=== PATIENT | male | born 1990 | race Caucasian/White ===

== ENCOUNTER 2024-03-23 12:32 | Emergency (ER) | payer OTHER, SELFPAY ==
[2024-03-23] VITALS (8 sets, daily range): BP systolic 114–136; BP diastolic 77–92; PULSE 87–119; TEMP 36.6; O2SAT 95–100; BMI 21.9
--- NOTE | 2024-03-23 12:49 | ECG_ITS ---
[facility] Test Date: 2024-03-23 Pat Name: YOLY LATHAM Department: Room: - Gender: Male Laboratory Director: : 1990 Requested By: Order Number: [id number] Reading MD: CYNDI GIFFORD Measurements Intervals [place] Rate: 114 P: 53 MD: 148 QRS: 57 QRSD: 80 T: 54 QT: 316 QTc: 383 Interpretive Statements 1120 Sinus tachycardia 9140 abnormal rhythm ECG No previous ECG available for comparison Electronically Signed On 03-23-2024 18:14:42 EST by CYNDI GIFFORD
[2024-03-23 13:17] LABS: Basophils Percent Auto 0.5 % (0.2-2.0); Eosinophils Absolute Auto 0.2 10^3/uL (0.0-0.7); Eosinophils Percent Auto 2.8 % (0.9-7.0); Hematocrit 42.3 % (42.0-54.0); Hemoglobin 14.3 g/dL (14.0-18.0); Immature Granulocytes Abs Auto 0.01 10^3/uL (0.00-0.03); Immature Granulocytes Pct Auto 0.2 % (0.0-0.5); Lymphocytes Absolute Auto 1.6 10^3/uL (1.2-3.8); Lymphocytes Percent Auto 24.8 % (20.5-60.0); Mean Corpuscular HGB Conc 33.8 g/dL (29.9-35.2); Mean Corpuscular Hemoglobin 30.8 pg (25.9-34.0); Mean Corpuscular Volume 91.2 fL (80.0-94.0); Mean Platelet Volume 8.7 fL (9.5-13.5); Monocytes Absolute Auto 0.5 10^3/uL (0.3-0.8); Monocytes Percent Auto 8.1 % (1.7-12.0); Neutrophils Absolute Auto 4.2 10^3/uL (1.4-6.5); Neutrophils Percent Auto 63.6 % (43.0-75.0); Platelet Count 341 10^3/uL (150-450); Red Blood Count 4.64 10^6/uL (4.70-6.10); Red Cell Distribution Width 11.9 % (11.0-15.0); White Blood Count 6.5 10^3/uL (4.0-11.0)
[2024-03-23 13:30] LABS: Alanine Aminotransferase 37 U/L (16-63); Albumin Globulin Ratio 1.1; Albumin Level 3.9 g/dL (3.4-5.0); Alkaline Phosphatase 70 U/L (46-116); Anion Gap 13.2; Aspartate Amino Transferase 24 U/L (15-37); BUN Creatinine Ratio 16.8; Bilirubin Total 0.3 mg/dL (0.2-1.0); Calcium 8.7 mg/dL (8.5-10.1); Carbon Dioxide 29.4 mmol/L (21.0-32.0); Chloride 102 mmol/L (98-107); Estimated GFR (African America >60 (>=60 mL/min/1.73m^2); Estimated GFR (Non-African Ame >60 (>=60 mL/min/1.73m^2); Globulin 3.4 g/dL; Glucose 92 mg/dL (74-106); Potassium 3.6 mmol/L (3.5-5.1); Sodium 141 mmol/L (136-145); Total Protein 7.3 g/dL (6.4-8.2)
[2024-03-23 13:37] LABS: INR 1.01; Prothrombin Time 10.7 sec (9.0-11.6)
[2024-03-23 13:38] LABS: D Dimer <0.19 mg/L FEU (<=0.59)
[2024-03-23 13:39] LABS: Magnesium 1.7 mg/dL (1.8-2.4); Thyroid Stimulating Hormone 2.707 uIU/mL (0.358-3.740); Troponin I High Sensitivity 13.8 pg/mL (4.0-76.1)
--- NOTE | 2024-03-23 13:45 | ED.GENADUL1 ---
HPI HPI - General Adult General Chief complaint: Chest Pain Stated complaint: palpitations Time Seen by Provider: 03/23/24 12:49 Source: patient Mode of arrival: walk-in Limitations: no limitations History of Present Illness HPI narrative: The patient coming to the ER with a sense of palpitation for the last 3 days, he denies any nausea vomiting although he did mention having some shortness of breath sometimes He mentioned that he did not have any recent history of any long trips he has been playing video game when this started Related Data Home Medications ?Medication ?Instructions ?Recorded ?Confirmed No Known Home Medications 03/23/24 03/23/24 Allergies Allergy/AdvReac Type Severity Reaction Status Date / Time cefaclor (From Ceclor) Allergy Unknown Verified 03/23/24 12:39 cefdinir Allergy Unknown Verified 03/23/24 12:39 Sulfa (Sulfonamide Allergy Unknown Verified 03/23/24 12:39 Antibiotics) Opioid HPI Opioid Management Most Recent Opioid Data: No Data to Display Review of Systems ROS Status of ROS 10 or more systems reviewed and unremarkable except as noted in history and below PFSH PFSH Social History Little interest or pleasure in doing things: not at all Feeling down, depressed, or hopeless: not at all Exam Narrative Exam Narrative: Nurses notes and vital signs reviewed and patient is not hypoxic. General: Well-appearing and in no apparent distress. Skin: Warm, dry, no pallor noted. No rash. Head: Normocephalic, atraumatic. Neck: Supple, non-tender. Eye: Pupils are equal, round and EOMI. No scleral icterus. Ears, Nose, Mouth, and Throat: TM are clear, no nasal mucosal hypertrophy. Oral mucosa is moist, no posterior oropharynx erythema, uvula is mid-line Cardiovascular: Regular Rate and Rhythm without murmur, gallop or rub. Respiratory: No accessory muscle use or respiratory distress. Lungs are clear to auscultation, no wheezing, rales or rhonchi Chest Wall: no tenderness Back: No midline thoracic or lumbar vertebral tenderness. No CVA tenderness Musculoskeletal: normal ROM, no calf or popliteal tenderness, no lower extremity edema/swelling GI: Abdomen is soft, non-distended. Normal bowel sounds. No masses appreciated. No tenderness to palpation. No rebound, guarding, or rigidity noted. Neurological: A&O x4. No cranial nerve dysfunction observed. No truncal ataxia. Moves all extremities. Sensation intact. Psychiatric: Cooperative and interactive. Normal mood and affect. Constitutional Vital Signs, click to edit/add: Last Vital Signs Temp 97.8 F 03/23/24 12:44 Pulse 87 03/23/24 13:30 Resp 17 03/23/24 13:30 BP 114/77 03/23/24 13:30 Pulse Ox 98 03/23/24 13:30 O2 Del Method Room Air 03/23/24 12:44 Course Vital Signs Vital signs: Vital Signs Pulse Oximetry 98 03/23/24 12:40 Temperature 97.8 F 03/23/24 12:44 Pulse Rate 87 03/23/24 13:30 Respiratory Rate 17 03/23/24 13:30 Blood Pressure 114/77 03/23/24 13:30 Pulse Oximetry 98 03/23/24 13:30 Oxygen Delivery Method Room Air 03/23/24 12:44 Medical Decision Making MDM Narrative Medical decision making narrative: Upon arrival the patient did not show any distress his heart rate actually was 84 after he was provided with IV fluid CBC and chemistry showed no acute pathology except for mild hypomagnesemia of 1.7 The patient EKG was showing sinus tachycardia with a heart rate of [address] elevation or depression The patient D-dimer was negative as well as troponin and TSH was within normal Right now the patient was instructed on hydration and avoiding any caffeinated drink The patient is to follow up with primary care physician in next 2-3 days or to return to the emergency department should any of the signs or symptoms worsen or new symptoms develop. The patient agrees with the following Diagnosis and Treatment plan and the patient will be discharged home. Lab Data Labs: Lab Results 03/23/24 Range/Units 12:55 WBC 6.5 (4.0-11.0) 10^3/uL RBC 4.64 L (4.70-6.10) 10^6/uL Hgb 14.3 (14.0-18.0) g/dL Hct 42.3 (42.0-54.0) % MCV 91.2 (80.0-94.0) fL MCH 30.8 (25.9-34.0) pg MCHC 33.8 (29.9-35.2) g/dL RDW 11.9 (11.0-15.0) % Plt Count 341 (150-450) 10^3/uL MPV 8.7 L (9.5-13.5) fL Neut % (Auto) 63.6 (43.0-75.0) % Lymph % (Auto) 24.8 (20.5-60.0) % Teller % (Auto) 8.1 (1.7-12.0) % Eos % (Auto) 2.8 (0.9-7.0) % Baso % (Auto) 0.5 (0.2-2.0) % Neut # (Auto) 4.2 (1.4-6.5) 10^3/uL Lymph # (Auto) 1.6 (1.2-3.8) 10^3/uL Teller # (Auto) 0.5 (0.3-0.8) 10^3/uL Eos # (Auto) 0.2 (0.0-0.7) 10^3/uL Baso # (Auto) 0.0 (0.0-0.1) 10^3/uL Abs Immat Gran (auto) 0.01 (0.00-0.03) 10^3/uL Imm/Tot Granulo (auto) 0.2 (0.0-0.5) % PT 10.7 (9.0-11.6) sec INR 1.01 D-Dimer <0.19 (<=0.59) mg/L FEU Sodium 141 (136-145) mmol/L Potassium 3.6 (3.5-5.1) mmol/L Chloride 102 (98-107) mmol/L Carbon Dioxide 29.4 (21.0-32.0) mmol/L Anion Gap 13.2 BUN 16.0 (7.0-18.0) mg/dL Creatinine 0.95 (0.70-1.30) mg/dL Est GFR ( Amer) >60 (>=60 mL/min/1.73m^2) Est GFR (Non-Af Amer) >60 (>=60 mL/min/1.73m^2) BUN/Creatinine Ratio 16.8 Glucose 92 (74-106) mg/dL Calcium 8.7 (8.5-10.1) mg/dL Magnesium 1.7 L (1.8-2.4) mg/dL Total Bilirubin 0.3 (0.2-1.0) mg/dL AST 24 (15-37) U/L ALT 37 (16-63) U/L Alkaline Phosphatase 70 (46-116) U/L Troponin I High Sens 13.8 (4.0-76.1) pg/mL Total Protein 7.3 (6.4-8.2) g/dL Albumin 3.9 (3.4-5.0) g/dL Globulin 3.4 g/dL Albumin/Globulin Ratio 1.1 TSH 2.707 (0.358-3.740) uIU/mL Discharge Plan Discharge Chief Complaint: Chest Pain Clinical Impression: Heart palpitations Patient Disposition: Home, Self-Care Time of Disposition Decision: 13:45 Condition: Good Prescriptions / Home Meds: No Action No Known Home Medications Print Language: Japanese Instructions: Heart Palpitations (DC) Referrals: Physician,Non-Staff, MD [Primary Care Provider] - 1 week
[2024-03-23] MEDS: MAGNESIUM OXIDE 400 MG TABLET PO (13:50)
== END 2024-03-23 13:54 | disposition home or self-care (01) ==
PROVIDERS: Emergency Provider Emergency Medicine
DX: R00.2 Palpitations (principal); R07.9 Chest pain, unspecified
CPT/HCPCS: 36415; 80053; 80307; 83735; 84443; 84484; 85025; 85378; 85610; 93005; 99284